=== PATIENT | female | born 1955 | race Caucasian/White ===

== ENCOUNTER → 2016-05-28 | Day surgery (SDC) | payer BC ==
[~2016-05-28] MED LIST: CRESTOR PO; CRESTOR10 MG PO; HYDROCODON-ACE1 EAC7 PO; LOW DOSE ASPIRI81 M1 PO; OXYCODONE PO; VITAMIN D1000 UNI1 PO; VITAMIN D2000 UNI1 PO
--- NOTE | ~2016-05-28 | OR ---
Unit #: [id number] #: [id number] Patient: PAT BASS [id number] [address] [address] [id number] O MR#: [id number] NAME: PAT BASS ROOM: Date of Procedure: 05/28/2016 Admission Date: 05/28/2016 Surgeon: Duncan Pardo M.D. : 1955 Attending Physician: Duncan Pardo M.D. Referring Physician: Duncan Pardo M.D. Primary Care Physician: Larry Murillo M.D. OPERATIVE REPORT PREOPERATIVE DIAGNOSIS Arthrofibrosis, right total knee. POSTOPERATIVE DIAGNOSIS Arthrofibrosis, right total knee. PROCEDURE PERFORMED Manipulation of right total knee. DESCRIPTION OF PROCEDURE The patient was brought to the operating room, given a general anesthetic. After this was done, the right knee was manipulated with palpable and audible release of adhesions. We were able to flex the knee to about 115 to 120 degrees of flexion. The patient tolerated the procedure well and was moved to the recovery room. Dictated by... Connor Squires/benjamin TD: 05/29/2016 01:58 JOB #: [id number] OPERATIVE REPORT Page 1 of 1 X Duncan Pardo MD X PROCEDURE OPERATIVE NOTE
--- NOTE | ~2016-05-28 | OR ---
Unit #: [id number] #: [id number] Patient: PAT BASS [id number] [address] [address] [id number] O MR#: [id number] NAME: PAT BASS ROOM: Date of Procedure: 05/28/2016 Admission Date: 05/28/2016 Surgeon: Duncan Pardo M.D. : 1955 Attending Physician: Duncan Pardo M.D. Referring Physician: Duncan Pardo M.D. Primary Care Physician: Larry Murillo M.D. OPERATIVE REPORT PREOPERATIVE DIAGNOSIS Arthrofibrosis, status post right total knee. PROCEDURE PERFORMED Manipulation, right knee. ANESTHESIA General. ESTIMATED BLOOD LOSS Zero. DESCRIPTION OF PROCEDURE The patient was brought to the operating room, given a general anesthetic. Her motion was 0 to about 75 to 80 degrees of flexion. We were able to manipulate the knee to 110 to 115 degrees of flexion with palpable and audible release of her adhesions. The patient tolerated the procedure well and was moved to the recovery room. She will attend physical therapy this afternoon. Dictated by... Connor Squires/benjamin TD: 05/29/2016 01:56 JOB #: [id number] OPERATIVE REPORT Page 1 of 1 X Duncan Pardo MD X PROCEDURE OPERATIVE NOTE
== END | disposition home or self-care (01) ==
LOC: CSUR 10:11
DX: M24.661 Ankylosis, right knee (principal); Z96.651 Presence of right artificial knee joint; K21.9 Gastro-esophageal reflux disease without esophagitis; E78.00 Pure hypercholesterolemia, unspecified; Z90.49 Acquired absence of other specified parts of digestive tract; Z90.710 Acquired absence of both cervix and uterus
CPT/HCPCS: J2250; J3010